=== PATIENT | male | born 2000 | race Caucasian/White ===

== ENCOUNTER 2021-05-02 16:25 | Emergency (ER) | payer OTHER, BC | END 2021-05-02 17:15 | disposition home or self-care (01) | LOC: ERS 16:25 | DX: Z02.89 Encounter for other administrative examinations (principal); F17.290 Nicotine dependence, other tobacco product, uncomplicated; V89.2XXA Person injured in unspecified motor-vehicle accident, traffic, initial encounter | CPT/HCPCS: 99284 ==